=== PATIENT | female | born 1970 | race Two or more races ===

== ENCOUNTER 2017-09-14 07:30 | Day surgery (SDC) | payer OTHER ==
[2017-09-14] MEDS ORDERED: ONDANSETRON 4 MG/2 ML VIAL IV ONE (07:31)
[2017-09-14] MEDS ORDERED: CEFAZOLIN 1 G VIAL MC ONE (07:31)
[2017-09-14] MEDS ORDERED: SEVOFLURANE 250 ML BOTTLE IH ONE (07:31)
[2017-09-14] MEDS ORDERED: PROPOFOL 200 MG/20 ML BOTTLE IV ONE (07:31)
[2017-09-14] MEDS ORDERED: DEXAMETHASONE SOD PHOSPHATE 4 MG INJ IV ONE (07:31)
[2017-09-14 07:41] LABS: *URINE HCG, QUAL NEGATIVE (NEGATIVE)
[2017-09-14] MEDS ORDERED: POLYMYXIN B SULFATE 500,000 UNITS, BACITRACIN 50,000 UNITS, NORMAL SALINE 20 ML MC ONE ×3 (08:00)
[2017-09-14] MEDS ORDERED: MIDAZOLAM HCL 2 MG/2 ML VIAL ONE (08:16)
[2017-09-14] MEDS ORDERED: SUCCINYLCHOLINE CHLORIDE 200 MG/10 ML VIAL ONE (08:16)
[2017-09-14] MEDS ORDERED: FENTANYL CITRATE 100 MCG/2 ML AMPUL ONE ×2 (08:16→09:36)
[2017-09-14] MEDS ORDERED: MORPHINE SULFATE PF 10 MG/10 ML AMPUL IV ONE (08:48)
[2017-09-14] MEDS ORDERED: BUPIVACAINE 0.25% 30 ML VIAL ONE (08:48)
[2017-09-14] MEDS ORDERED: HYDROCODONE/APAP 5-325MG TABLET ONE (10:10)
== END 2017-09-14 11:10 | disposition home or self-care (01) ==
LOC: DS 07:30
PROVIDERS: ATTEND Orthopaedic Surgery
DX: M94.262 Chondromalacia, left knee (principal); M25.862 Other specified joint disorders, left knee; E11.9 Type 2 diabetes mellitus without complications; I10 Essential (primary) hypertension; Z98.890 Other specified postprocedural states; Z88.8 Allergy status to other drugs, medicaments and biological substances; Z79.899 Other long term (current) drug therapy; Z79.84 Long term (current) use of oral hypoglycemic drugs; Z83.3 Family history of diabetes mellitus; Z82.49 Family history of ischemic heart disease and other diseases of the circulatory system; K21.9 Gastro-esophageal reflux disease without esophagitis
CPT/HCPCS: 84703; A4663; J0330; J0690; J1100; J2250; J2274; J2405; J3010; J3490; J7030